=== PATIENT | male | born 1955 | race Caucasian/White ===

== ENCOUNTER → 2018-04-02 | Outpatient (CLI) | payer OTHER | END | disposition home or self-care (01) | LOC: CARD 13:02 | PROVIDERS: ATTEND Internal Medicine Cardiovascular Disease | DX: R06.02 Shortness of breath (principal); R42 Dizziness and giddiness | CPT/HCPCS: 94060; 94726; 94729 ==

== ENCOUNTER → 2018-05-10 | Outpatient (CLI) | payer OTHER | END | disposition home or self-care (01) | LOC: CFH 07:35 | PROVIDERS: ATTEND Internal Medicine Cardiovascular Disease | DX: I25.9 Chronic ischemic heart disease, unspecified (principal); I51.7 Cardiomegaly; I21.A9 Other myocardial infarction type; Z87.891 Personal history of nicotine dependence | CPT/HCPCS: 78452; 93017; 93306; A9502 ==

== ENCOUNTER 2018-06-15 07:20 | Day surgery (SDC) | payer OTHER ==
[2018-06-13 11:21] LABS: BASOPHILS # (AUTO) 0.03 x10^3/uL (0-0.1); BASOPHILS % (AUTO) 1 % (0-1); EOSINOPHILS # (AUTO) 0.13 x10^3/uL (0-0.4); EOSINOPHILS % (AUTO) 3 % (1-7); LYMPHOCYTES # (AUTO) 2.05 x10^3/uL (1-3.4); LYMPHOCYTES % (AUTO) 43 % (22-44); MD NO; MEAN CORPUSCULAR HEMOGLOBIN 34.6 pg (27.5-34.5); MEAN CORPUSCULAR HGB CONC 34.7 g/dL (33.2-36.2); MEAN CORPUSCULAR VOLUME 99.8 fL (81-97); MEAN PLATELET VOLUME 7.6 fL (7.4-10.4); MONOCYTES % (AUTO) 13 % (2-9); NEUTROPHILS # (AUTO) 1.94 x10^3/uL (1.8-6.8); NEUTROPHILS % (AUTO) 41 % (42-75); PLATELET COUNT 277 x10^3/uL (130-400); RED CELL DISTRIBUTION WIDTH 12.4 % (9.4-14.8)
[2018-06-13 12:13] LABS: ANION GAP 7 mmol/L (5-15); CALCIUM 8.9 mg/dL (8.5-10.1); CHLORIDE 109 mmol/L (98-107); CREATININE 1.28 mg/dL (0.7-1.3)
[~2018-06-15] VITALS: Ht 172.7 cm; Wt 95.5 kg
[~2018-06-15 07:20] MED LIST: ASCO500C10 PO; CART1TAB5 PO; CHOL2000 PO; CYAN50TA PO; FENO160T PO; FENO48TA16 PO; FLUT9.9S NAS; MULT1TAB60 PO; OMEG-133 PO
[2018-06-15 07:39] VITALS: BP 137/87
[2018-06-15] MEDS ORDERED: MIDAZOLAM 1 MG/ML, 5ML ONE (11:35)
[2018-06-15] MEDS ORDERED: LIDOCAINE/PF 1%, 30ML ONE (11:35)
[2018-06-15] MEDS ORDERED: FENTANYL PF 100 MCG/2ML ONE (11:35)
[2018-06-15 13:49] VITALS: BP 113/77
== END 2018-06-15 18:00 | disposition home or self-care (01) ==
LOC: CACL 07:20 → 5SO 13:31 → CACL 18:00
PROVIDERS: ATTEND Internal Medicine Cardiovascular Disease
DX: I20.8 Other forms of angina pectoris (principal); E66.9 Obesity, unspecified; E78.4 Other hyperlipidemia; Z87.891 Personal history of nicotine dependence
CPT/HCPCS: 36415; 80048; 85025; 93458; 99156; 99157; C1760; C1769; C1894; J2250; J3010; J3490; Q9967

== ENCOUNTER → 2021-06-30 | Outpatient (CLI) | payer MEDICARE ==
[~2021-06-30] MED LIST changes: +MULT-449 PO; -MULT1TAB60 PO
[2021-06-30 08:06] LABS: MICROSCOPIC NOT IND
[2021-06-30 08:10] LABS: BASOPHILS % (AUTO) 1 % (0-1); EOSINOPHILS % (AUTO) 2 % (1-7); LYMPHOCYTES % (AUTO) 44 % (22-44); MEAN CORPUSCULAR HEMOGLOBIN 34.3 pg (27.5-34.5); MEAN CORPUSCULAR HGB CONC 34.9 g/dL (33.2-36.2); MEAN PLATELET VOLUME 7.2 fL (7.4-10.4); MONOCYTES % (AUTO) 10 % (2-9); NEUTROPHILS % (AUTO) 44 % (42-75); PLATELET COUNT 259 x10^3/uL (130-400); RED BLOOD COUNT 4.44 x10^6/uL (4.38-5.82); RED CELL DISTRIBUTION WIDTH 12.4 % (9.4-14.8)
[2021-06-30 08:20] LABS: ANION GAP 7 mmol/L (5-15); CALCIUM 9.2 mg/dL (8.5-10.1); CHLORIDE 107 mmol/L (98-107); CREATININE 1.06 mg/dL (0.7-1.3)
[2021-06-30 08:28] LABS: TOTAL PROTEIN,URINE RANDOM < 5 mg/dL (0-12)
[2021-06-30 08:47] LABS: CALCIUM 9.2 mg/dL (8.5-10.1)
== END | disposition home or self-care (01) ==
LOC: LAB 07:31
PROVIDERS: ATTEND Internal Medicine Nephrology
DX: N18.31 Chronic kidney disease, stage 3a (principal); Z79.899 Other long term (current) drug therapy
CPT/HCPCS: 36415; 80069; 81003; 82043; 82306; 82310; 82570; 83735; 83970; 84156; 85025